=== PATIENT | female | born 1935 | race Caucasian/White ===

== ENCOUNTER 2017-06-22 19:06 | Inpatient (IN) ==
[2017-06-22 19:49] LABS: URINE CULTURE NEEDED? NO; URINE MICRO REVIEW NEEDED? NO; URINE SOURCE CLEAN CATCH
[2017-06-22 20:02] LABS: BASO% 0.2 % (0.0-0.8); EOS# 0.12 X1000 (0.0-0.7); EOS% 1.3 % (0.0-10.0); HEMATOCRIT 42.5 % (37.0-47.0); HEMOGLOBIN 14.1 g/dL (12.0-16.0); LYMPH# 1.55 X1000 (1.2-3.4); LYMPH% 16.3 % (20.5-51.1); MANUAL DIFF NEEDED? NO; MCH 29.7 PG (27-31); MCHC 33.2 g/dL (33-37); MCV 89.7 FL (81-99); MONO# 0.91 X1000 (0.11-0.59); MONO% 9.6 % (1.7-9.3); MPV 12.3 FL (7.4-10.4); NEUT% 72.6 % (42.2-75.2); PLT 204 X1000 (130-400); RBC 4.74 XMIL (4.2-5.4)
[2017-06-22 20:05] LABS: BILIRUBIN URINE NEGATIVE (NEGATIVE); BLOOD URINE NEGATIVE (NEGATIVE); COLOR YELLOW; GLUCOSE URINE 100 mg/dL (NEGATIVE); LEUKOCYTES URINE NEGATIVE (NEGATIVE); NITRITE URINE NEGATIVE (NEGATIVE); PH URINE 5.5; PROTEIN URINE 50 mg/dL (NEGATIVE); SP GRAVITY URINE 1.035; TURBIDITY URINE HAZY (CLEAR); UR EPITHELIAL CELLS >10 /HPF (<10); URINE BACTERIA NEGATIVE /HPF; URINE RBC <10 /HPF (<10); URINE WBC <10 /HPF (<10); UROBILINOGEN URINE 3 mg/dL (NORMAL)
[2017-06-22 20:14] LABS: INR 0.96; PROTIME 10.1 Seconds (9.2-11.7); PTT 26.2 Seconds (22.0-36.0)
[2017-06-22] MEDS ORDERED: NS 500 ML IV ONE (20:15)
--- NOTE | 2017-06-22 20:23 | Diag Imaging Result Doc PS360 ---
EXAM: HEAD/C-SPINE W/O CONTRAST INDICATION: multiple falls, weakness COMPARISON: CTA neck dated 01/20/2013. No dedicated CT head or CT C-spine is available for comparison. 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 There are a few chronic lacunar infarcts involving the deep zuniga matter bilaterally. There is diffuse brain atrophy. There is no definite acute infarct given the limited sensitivity of CT versus MRI. There is no discrete intracranial mass, mass effect, or intracranial hemorrhage. The surrounding soft tissues are essentially unremarkable. The calvaria is intact. C-spine: There is advanced multilevel degenerative disc disease, worst at C4-5, C5-6, and C6-7 with loss of disc space and marginal osteophyte formation. There is multilevel facet degenerative arthropathy, most significant at C2-3 and C3-4. There is mild anterolisthesis of C3 on C4 due to the facet arthropathy. This is also seen on the previous neck CTA. The degenerative changes are causing some degree of central canal and neuroforaminal narrowing at multiple levels. This appears chronic. There is no discrete fracture, subluxation, or intrinsic osseous lesion, otherwise. The surrounding soft tissues are essentially unremarkable. IMPRESSION: 1.Fairly extensive chronic changes as described but no evidence of acute intracranial pathology. 2.Advanced multilevel degenerative change throughout the cervical spine but no evidence of fracture or other definite acute C-spine injury. Electronically signed by Stephan Wolf 06/22/2017 8:20 PM
--- NOTE | 2017-06-22 20:34 | Diag Imaging Result Doc PS360 ---
EXAM: CHEST-PORTABLE INDICATION: weakness TECHNIQUE: One view COMPARISON: 05/07/2017 FINDINGS: There is elevation of the right hemidiaphragm similar to the previous study. There is evidence of prior granulomatous disease. The lungs are grossly clear, otherwise. There is no discrete pleural fluid collection or pneumothorax. The cardiomediastinal silhouette and central vasculature are grossly unremarkable. IMPRESSION: No evidence of acute pathology by plain radiograph. Electronically signed by Stephan Wolf 06/22/2017 8:32 PM
--- NOTE | 2017-06-22 20:37 | Diag Imaging Result Doc PS360 ---
EXAM: WRIST COMPLETE LEFT INDICATION: fall TECHNIQUE: 3 views COMPARISON: 05/07/2017 FINDINGS: There are stable degenerative changes involving the trapezium, scaphotrapezial joint, and at the base of the first and second metacarpals. There is no discrete fracture, dislocation, or significant intrinsic osseous lesion, otherwise. There appears to be some degree of soft tissue edema around the wrist. IMPRESSION: Stable degenerative changes as described. No definite acute osseous abnormality by plain radiograph. Electronically signed by Stephan Wolf 06/22/2017 8:35 PM
--- NOTE | 2017-06-22 20:38 | ED EKG INTERP ---
This chart was entered by Anson Farrar Scribe, acting as scribe for Michele Ureña MD. EKG Interpretation - EKG Time of EKG reading by physician:: 19:13 EKG Read and Signed by:: Michele Ureña EKG Interpretation (*Must complete 3 of following elements*): Abnormal (ST & T wave abnormality, consider lateral ischemia) Rate: 70 Rhythm: NSR with sinus arrhythmia This chart was documented by the indicated scribe, (Anson Farrar Scribe) and accurately reflects the services I performed and decisions made by me, Michele Hughes MD, as attested by the provider's signature.
--- NOTE | 2017-06-22 20:40 | Diag Imaging Result Doc PS360 ---
EXAM: FOOT COMPLETE LEFT INDICATION: fall TECHNIQUE: 3 views COMPARISON: None. FINDINGS: There is a tiny calcaneal bone spur at the undersurface. There is minimal intercarpal degenerative osteophyte formation at the dorsum of the foot. There is no discrete fracture, dislocation, or significant intrinsic osseous lesion, otherwise. There is suggestion of mild soft tissue edema around the ankle. IMPRESSION: Mild chronic changes. No evidence of acute osseous abnormality involving the intrinsic bones of the foot. Electronically signed by Stephan Wolf 06/22/2017 8:38 PM
--- NOTE | 2017-06-22 20:41 | Diag Imaging Result Doc PS360 ---
EXAM: ANKLE COMPLETE LEFT INDICATION: fall TECHNIQUE: 3 views COMPARISON: None. FINDINGS: There is no discrete fracture, dislocation, or significant intrinsic osseous lesion. The visualized joint spaces are essentially unremarkable. There is suggestion of soft tissue edema surrounding the ankle. IMPRESSION: Soft tissue edema but no definite acute osseous abnormality. Electronically signed by Stephan Wolf 06/22/2017 8:39 PM
[2017-06-22 21:29] LABS: ALBUMIN 3.6 g/dL (3.5-5.0); CALCIUM 9.2 mg/dL (8.8-10.2); MAGNESIUM 1.8 mg/dL (1.5-2.7); POTASSIUM 3.8 mmol/L (3.5-5.1); TOTAL BILIRUBIN 0.26 mg/dL (0.20-1.00); TOTAL PROTEIN 6.7 g/dL (6.3-8.3)
--- NOTE | 2017-06-22 22:56 | PROVIDER DOCUMENTATION ---
This chart was entered by Anson Farrar Scribe, acting as scribe for José Miguel Brody PA. HPI-Musculoskeletal Pain/Inj - GENERAL Chief Complaint: Fall Stated Complaint: AMS after fall 2 days ago Time Seen by Provider: 06/22/17 19:09 Source: patient, family - HX OF PRESENT ILLNESS-MUSKULOSKELTAL Nature of Presenting Problem: Pt is a 81 yof who presents to ER with CC of multiple falls in the past 2 days. Pt complains of left wrist and left ankle/foot pain and has been non-ambulatory since one of her recent falls (details of falls cannot be provided). Pt has hx of frequent UTIs and family reports that pt is more prone to falling when she has a UTI. Quality of Pain: reports: aching, cramping Severity in ED: mild, moderate Onset/Duration: 2 days ago Timing: still present Any recent injury?: Yes (fall) Locality of Occurance: Home Similar Symptoms Previously?: Yes Recently seen or treated by another doctor?: No - FALL INJURY Location of Pain/Injury: reports: upper extremity (left wrist), lower extremity (left ankle/foot), feet (left) Pain Radiation: reports: no radiation Reason for Fall: reports: unknown Symptoms prior to fall:: reports: other (unknown) Loss of Consciousness: unsure Injury Associated Symptoms: reports: joint pain, muscle aches, unable to bear weight, weakness, trouble walking, other (left wrist pain). denies: arm pain, back/neck pain, chest pain, diaphoresis, dizziness, headaches, nausea, puncture wound, shortness of breath, sensory/motor loss, snap/crack/pop sensation, pain with inspiration, vomiting Review of Systems - Adult - REVIEW OF SYSTEMS - ADULT Constitutional: denies: chills, fever, fatique, night sweats, weight gain, weight loss Eyes: reports: no symptoms reported Ears, Nose, Mouth & Throat: reports: no symptoms reported Cardiovascular: reports: no symptoms reported Respiratory: reports: no symptoms reported Gastrointestinal: reports: no symptoms reported Genitourinary: reports: no symptoms reported Musculoskeletal: reports: joint pain (left wrist, left ankle), joint swelling, muscle aches, other (left foot pain). denies: bone pain, back pain, frequent leg cramps, muscle weakness, neck pain Integumentary: reports: no symptoms reported Neurological: reports: no symptoms reported Psychiatric: reports: no symptoms reported Endocrine: reports: no symptoms reported Hematologic/Lymphatic: reports: no symptoms reported Allergic/Immunologic: reports: no symptoms reported All Other Systems: Reviewed and Negative Past History - Adult - PAST MEDICAL HISTORY-ADULT Review of Records: reports: Nursing Assessment Review, Medications Reviewed Cardiovascular: reports: HTN Respiratory: reports: denies history Genitourinary: reports: chronic UTI's Neurological: reports: denies history Endocrine/Immune: reports: Diabetes (?) - PRIOR SURGERIES/PROCEDURES Surgical/Procedure History: reports: hysterectomy, tonsillectomy, hernia repair , back/neck (sx), other (CEA) - IMMUNIZATION STATUS Childhood Immunizations: See Nurse Assessment Flu Vaccine: See Nurse Assessment Physical Exam-Injury Related - Physical Exam-Injury Related Initial Vital Signs Reviewed: Yes General Appearance: appears well, alert, no apparent distress, other (Non-toxic) Head, Ears, Nose, Mouth & Throat: normocephalic/atraumatic, moist mucous membranes, normal ENT inspection, TMs normal, pharynx normal. negative: angioedema, dental decay Neck: non-tender, full range of motion, supple. negative: limited range of motion, muscle spasm, pain on movement, swelling Respiratory: chest non-tender, lungs clear, normal breath sounds, no pleuratic chest pain, no respiratory distress, no accessory muscle use. negative: respiratory distress, decreased breath sounds, accessory muscle use, wheezing Cardiovascular: normal peripheral pulses, regular rate, rhythm. negative: bradycardia, tachycardia, irregularly irregular Abdominal Exam: normal bowel sounds, non tender, soft, no organomegaly, no pulsatile mass. negative: guarding, rebound, tenderness Back Exam: no CVA tenderness, no vertebral tenderness. negative: CVA tenderness , vertebral tenderness Extremity: normal inspection, no pedal edema, no calf tenderness, normal capillary refill, pelvis stable, tenderness (left wrist tender; left lateral malleolus; Left lateral aspect of left foot painful). negative: normal range of motion, non-tender, normal gait, deformity, erythema, inflammation, swelling Psych/Mental Status: normal thought content, normal thought process, other (A/ Ox2). negative: normal mood/affect, oriented x 3 Progress - PLAN OF CARE/RESULTS Progress/Plan/Lab Results: Vital Signs - 8 hr 06/22/17 19:16 Pulse Rate 70 Respiratory Rate 18 Blood Pressure 172/66 O2 Sat by Pulse Oximetry 92 L Laboratory Results - last 24 hr 06/22/17 06/22/17 06/22/17 19:38 19:38 19:38 WBC 9.52 RBC 4.74 Hgb 14.1 Hct 42.5 MCV 89.7 MCH 29.7 MCHC 33.2 RDW Std Deviation 14.9 H Plt Count 204 MPV 12.3 H Neut % (Auto) 72.6 Lymph % (Auto) 16.3 L [place] % (Auto) 9.6 H Eos % (Auto) 1.3 Baso % (Auto) 0.2 Neut # (Auto) 6.92 H Lymph # (Auto) 1.55 [place] # (Auto) 0.91 H Eos # (Auto) 0.12 Baso # (Auto) 0.02 PT 10.1 INR 0.96 PTT (Actin FS) 26.2 Sodium 139 Potassium 3.8 Chloride 102 Carbon Dioxide 24 L Anion Gap 13 BUN 41 H Creatinine 1.0 H Estimated GFR/1.73 m2 53 BUN/Creatinine Ratio 41 Glucose 205 H Calculated Osmolality 294 Calcium 9.2 Magnesium 1.8 Total Bilirubin 0.26 AST 20 ALT 11 Alkaline Phosphatase 52 Creatine Kinase 63 Troponin T Total Protein 6.7 Albumin 3.6 Globulin 3.1 Albumin/Globulin Ratio 1.2 Urine Source Urine Color Urine Turbidity Urine pH Ur Specific [place] Urine Protein Ur Glucose (Stick) Ur Ketones (Stick) Urine Blood Urine Nitrite Urine Bilirubin Urobilinogen Dipstick Urine Leukocytes Urine WBC (Auto) Urine RBC (Auto) U Epithel Cells (Auto) Urine Bacteria (Auto) 06/22/17 06/22/17 19:38 19:38 WBC RBC Hgb Hct MCV MCH MCHC RDW Std Deviation Plt Count MPV Neut % (Auto) Lymph % (Auto) [place] % (Auto) Eos % (Auto) Baso % (Auto) Neut # (Auto) Lymph # (Auto) [place] # (Auto) Eos # (Auto) Baso # (Auto) PT INR PTT (Actin FS) Sodium Potassium Chloride Carbon Dioxide Anion Gap BUN Creatinine Estimated GFR/1.73 m2 BUN/Creatinine Ratio Glucose Calculated Osmolality Calcium Magnesium Total Bilirubin AST ALT Alkaline Phosphatase Creatine Kinase Troponin T < 0.010 Total Protein Albumin Globulin Albumin/Globulin Ratio Urine Source CLEAN CATCH Urine Color YELLOW Urine Turbidity HAZY Urine pH 5.5 Ur Specific [place] 1.035 Urine Protein 50 A Ur Glucose (Stick) 100 A Ur Ketones (Stick) TRACE A Urine Blood NEGATIVE Urine Nitrite NEGATIVE Urine Bilirubin NEGATIVE Urobilinogen Dipstick 3 A Urine Leukocytes NEGATIVE Urine WBC (Auto) <10 Urine RBC (Auto) <10 U Epithel Cells (Auto) >10 A Urine Bacteria (Auto) NEGATIVE Orders Category Date Time Status Saline Loc NOW Care 06/22/17 19:23 Active ANKLE COMPLETE LEFT [RAD] Stat Exams 06/22/17 19:23 Completed CHEST-PORTABLE [RAD] Stat Exams 06/22/17 19:23 Completed FOOT COMPLETE LEFT [RAD] Stat Exams 06/22/17 19:23 Completed HEAD/C-SPINE W/O CONTRAST [CT] Stat Exams 06/22/17 19:23 Completed WRIST COMPLETE LEFT [RAD] Stat Exams 06/22/17 19:23 Completed CBC WITH ELECTRONIC DIFF [HEME] Stat Lab 06/22/17 19:38 Completed CK PROFILE [SP CHEM] Stat Lab 06/22/17 19:38 Completed COMPREHENSIVE METABOLIC PANEL [CHEM] Stat Lab 06/22/17 19:38 Completed MAGNESIUM [CHEM] Stat Lab 06/22/17 19:38 Completed PROTIME WITH INR [COAG] Stat Lab 06/22/17 19:38 Completed PTT [COAG] Stat Lab 06/22/17 19:38 Completed TROPONIN T Stat Lab 06/22/17 19:38 Completed UA NIMS W/REFLEX CULT [URINALYSIS] Stat Lab 06/22/17 19:38 Completed 0.9% Sodium Chloride Inj [Ns] 500 ml Med 06/22/17 20:15 Discontinued IV 999 mls/hr EKG [EKG] Stat Ther 06/22/17 19:23 Ordered Pt without clear etiology of her falls. Waxing/waning confusion. Dehydrated, unable to ambulate. x-rays read as NAF although suspicious for occult fx. Will admit for further management. Result Diagrams: 06/22/17 19:38 06/22/17 19:38 - XRAY 1 XRAY: Left XRAY Study: Foot Impression: See EMR Report (Mild chronic changes. No evidence of acute osseus abnormality involving the intrinsic bones of the foot - Dr. oWlf (Radiologist)) XRAY Interpretation: See report 2 XRAY: Left XRAY Study: Wrist Impression: See EMR Report (Soft tissue edema but no definite acute osseus abnormality - Dr. Wolf (Radiologist)) XRAY Interpretation: See report 3 XRAY: Left XRAY Study: Wrist Impression: See EMR Report (Stable degenerative changes as described. No definite acute asseus abnormality by plain radiograph - Dr. Wolf (Radiologist)) 4 XRAY: Bilateral XRAY Study: Chest Impression: See EMR Report (No evidence of acute pathology by plain radiograph - Dr. Wolf (Radiologist)) - CT/MRI 1 CT Study: Cervical Spine, Head Impression: See EMR Report (Fairly extensive chronic changes as described but no evidence of acute intracranial pathology. Advanced multilevel degenerative change throughout the cervical spine but no evidence of fx or other definite acute C-spine injury - Dr. Wolf (Radiologist)) - CONSULTS/PCP/HOSPITALIST Notification #1 *Consult/PCP/Hospitalist*: Dr. Castillo (Hospitalist) Time Discussed: 22:01 Consult Disposition: Admit Departure - Departure Date of Disposition Decision: 06/22/17 Time of Disposition Decision: 22:03 DIAGNOSIS: Falls frequently, Dehydration, Abnormal EKG, Acute pain of left foot, Acute pain of left wrist, Confusion Disposition: ADMITTED INPATIENT 09 Certified Medical Emergency: Emergent Condition: Stable Referrals and Follow-Ups: Modesto Potter MD [Primary Care Provider] - - Critical Care Note This patient required my direct & personal management of CC.: No Attestation - Physician/ ISABEL Attestation Patient care was provided by Advanced Practice Provider:: Yes Advanced Practice Provider:: José Miguel Brody Advanced Practice Provider documentation review:: The Mid-level provider documentation, treatment plan and medical decision making was reviewed by the physician who agrees with all treatment and medical decision making by the MLP. This chart was documented by the indicated scribe, (Anson Farrar Scribe) and accurately reflects the services I performed and decisions made by me, José Miguel Brody PA, as attested by the provider's signature.
[2017-06-23] MEDS ORDERED: ZOFRAN IV PRN (00:13)
[2017-06-23] MEDS: NS 1,000 ML IV SCH ×2 (01:06→15:28)
[2017-06-23] MEDS: NORVASC PO SCH ×2 (01:06→21:12)
[2017-06-23] MEDS: LOVENOX SUBQ SCH (01:06)
--- NOTE | 2017-06-23 05:47 | EKG Report ---
Test Performed on : 06/22/2017 7:13:27 PM Test Reason : Chest Pain Blood Pressure : / mmHG Vent. Rate : 070 BPM Atrial Rate : 070 BPM P-R Int : 130 ms QRS Dur : 084 ms QT Int : 404 ms P-R-T Axes : 044 -11 116 degrees QTc Int : 436 ms Normal sinus rhythm. with sinus arrhythmia. ST \T\ T wave abnormality, consider lateral ischemia Abnormal ECG When compared with ECG of 08-FEB-2013 12:10, T wave inversion now evident in Anterolateral leads Unconfirmed Result
--- NOTE | 2017-06-23 06:40 | HISTORY AND PHYSICAL ---
PRIMARY CARE PHYSICIAN: Dr. Modesto Potter. CHIEF COMPLAINT: Recurrent falls. HISTORY OF PRESENT ILLNESS: This is an 81-year-old, female with past medical history of hypertension, hypercholesterolemia, peripheral vascular disease, who was brought to the emergency department because of recurrent falls. According to patient and family, who is at bedside, she started having those problems 2 weeks ago. She lives in an assisted living facility and during the last 4 days, the sensation of weakness in both legs has been getting worse and she started having falls 2 to 3 times per day since. Three days ago, one of those she hurt her on the left foot. According to the family, who is at bedside, she was having also some episodes of disorientation while she was there that lasted a few minutes. She also has history of recurrent UTIs, but at this time, she is not reporting any pain when she urinates. It is important to remark that she is still on prophylactic medication, in this case, Macrobid for prophylaxis with UTI. For all of those symptoms, we were called for admission. PAST MEDICAL HISTORY: 1. Hypertension. 2. Hypercholesterolemia. 3. Borderline diabetes. 4. Recurrent UTI. PAST SURGICAL HISTORY: 1. Left endarterectomy. 2. Back surgery. 3. Inguinal hernia repair. 4. Bladder surgery. ALLERGIES: The patient is allergic to Levaquin and codeine. SOCIAL HISTORY: She lives in an assisted living facility. She denies drinking alcohol, smoking tobacco or using illicit drugs. REVIEW OF SYSTEMS: All systems were reviewed and all symptoms are related. PHYSICAL EXAMINATION: VITALS: Temperature not checked in the ER, heart rate 70, respiratory rate 18, blood pressure 172/66, O2 saturation 92% on room air. GENERAL EXAMINATION: This is an 81-year-old, female lying in bed, in no acute distress. HEENT: Head is normocephalic, atraumatic. Anicteric sclerae and pale conjunctivae. Mucous membranes moist. NECK: Supple. No JVD noted. No carotid bruits. No lymphadenopathy. No thyromegaly. CARDIOVASCULAR: S1, S2 heard. No murmurs, gallops, or rubs. Regular rate and rhythm. RESPIRATORY: Clear bilaterally to auscultation. No work of breathing or using accessory muscles. ABDOMEN: Soft, nontender to palpation. Bowel sounds present. No organomegaly. EXTREMITIES: There is a pain to palpation in the anterior side of the left foot. No crepitus was noted, but very painful to palpation. Peripheral pulses present in both legs. NEUROLOGICAL: Patient is alert and oriented x3. Moves 4 extremities. Muscle strength 5/5 in both upper extremities and right lower extremities. LABORATORY DATA: The CBC and BMP is completely unremarkable. Urinalysis shows no leukocytes in urine. ASSESSMENT AND PLAN: 1. Recurrent falls. At this time, we do not know exactly why she is having falls. It could be just physical deconditioning versus worsening UTI. Her urinalysis initially is not back, so I think at this point, we do not need to cover this patient with antibiotics considering that this patient is not symptomatic. We have ordered a urine culture to see if there is any infection. 2. Hypertension. Blood pressure is high and she is receiving metoprolol 25 mg p.o. daily. We are going to add amlodipine to her current treatment. 3. Hyperlipidemia. We will continue with home medications. 4. Chronic back pain. We will continue with pain medications. 5. Left foot pain. After the x-ray was informed negative, the fact that this pain is better with to palpation and is not clearly crepitations over the leg, I prefer to consult Orthopedics to see if there is any fractures that we may have missed. 6. Borderline diabetes. At this time, we are going to do Accu-Cheks before meals. We will go from there. cc: Paco Solis MD
[2017-06-23 07:31] LABS: MANUAL DIFF NEEDED? NO
[2017-06-23 07:55] LABS: AGAP 15; BUN 35 mg/dL (8-22); CALCIUM 9.3 mg/dL (8.8-10.2); CHLORIDE 102 mmol/L (98-107); COSMO 290; POTASSIUM 4.2 mmol/L (3.5-5.1); SODIUM 140 mmol/L (136-145); TCO2 23 mmol/L (25-35)
[2017-06-23 08:10] LABS: BASO% 0.1 % (0.0-0.8); EOS# 0.14 X1000 (0.0-0.7); EOS% 1.9 % (0.0-10.0); HEMATOCRIT 36.8 % (37.0-47.0); LYMPH# 1.77 X1000 (1.2-3.4); LYMPH% 24.5 % (20.5-51.1); MCH 29.4 PG (27-31); MCHC 32.6 g/dL (33-37); MCV 90.2 FL (81-99); MONO# 0.76 X1000 (0.11-0.59); MONO% 10.5 % (1.7-9.3); MPV 12.6 FL (7.4-10.4); PLT 190 X1000 (130-400); RBC 4.08 XMIL (4.2-5.4)
[2017-06-23] MEDS: LOPRESSOR PO SCH (08:19)
[2017-06-23] MEDS: CELEXA PO SCH (08:19)
[2017-06-23] MEDS: TRICOR PO SCH (08:19)
[2017-06-23] MEDS: PRILOSEC PO SCH (08:23)
--- NOTE | 2017-06-23 15:46 | PROGRESS NOTE ---
DATE: 06/23/2017 SUBJECTIVE: The patient was admitted on 06/22history today. Her primary care doctor is Modesto Potter. She has a past medical history of hypertension, hypercholesterolemia, peripheral vascular disease. This 81-year-old was brought to the emergency department because of recurrent falls. According to patient's family who is at bedside when she came in. She started having problems about 2 weeks ago. She lives in an assisted living facility and during the last 4 days she had a sensation of weakness in both legs which got worse. She started having falls 2 or 3 times a day. Starting 3 weeks ago she began to hurt in her left foot. According to family, she is also having episodes of disorientation that would last for several minutes, history of recurrent UTIs but this time not reporting any symptoms. She is on some prophylactic Macrobid for UTIs. PAST MEDICAL HISTORY: 1. Hypertension. 2. Hypercholesterolemia. 3. Borderline diabetes. 4. Recurrent UTIs. PAST SURGICAL HISTORY: Left endarterectomy, back surgery, inguinal hernia repair, bladder surgery. OBJECTIVE: General: She is awake, oriented and pleasant today. No complaints when asked though she states she does not feel very good. Vital Signs: Temperature 97.7 degrees, pulse 61, respirations 16, blood pressure 160/51. Lungs: Clear in all lung drake. Cardiovascular: Regular rate without murmur or S3. Abdomen: Soft. Skin: Warm and dry. Urine: Good urine output. LABS: White count 7230, hematocrit 36, platelet count 190,000. Sodium 140, potassium 4.2, chloride 102, bicarbonate 23, BUN 35, creatinine 0.7, blood sugar 133/140/158. ASSESSMENT AND PLAN: 1. Recurrent falls. I am not sure exactly why she is having falls. It could be just deconditioning. We will ask Physical Therapy to evaluate and work on strengthening. 2. History of recurrent urinary tract infections. Aware. Urine culture. 3. Hypertension. Watch blood pressure. 4. Hyperlipidemia. 5. Chronic back pain. 6. This sounds like episodes of confusion consisting of metabolic encephalopathy, maybe some underlying cognitive decline as well. 7. Complaining of left foot pain. They did a foot x-ray with mild chronic changes. No evidence of acute osseous abnormality. On her right foot interestingly, on both her 2nd and 3rd toes she has a bunion on those toes that overlap the top of her first toe. 8. She had a wrist x-ray done 06/22/2017 stable degenerative changes described. No definite osseous abnormality. 9. Review of orders. She is on Mysoline 50 mg p.o. as needed. She is getting normal saline at 75 mL an hour, TriCor 145 mg a day, Celexa 20 mg a day, Norvasc [address] Doss was consulted. Physical Therapy to evaluate. 10. In looking at her home medications, she is on meloxicam, metoprolol, Macrodantin, primidone 50 mg as needed. cc: Eliazar Merida MD
--- NOTE | 2017-06-23 16:28 | ECHO REPORT ---
ORDER DATE: 06/23/2017 INDICATION: Hypertension, recurrent falls, history diabetes. FINDINGS: 1. The right atrium is normal in size at 3.3 cm. 2. There is at least moderate and possibly severe tricuspid regurgitation. Is a somewhat eccentric jet. RV systolic pressure of 71 indicating pulmonary hypertension. 3. Normal RV size and systolic function. 4. Mild pulmonic insufficiency. 5. Normal left atrial size at 3.9 cm. 6. No mitral valve prolapse. At least moderate and possibly severe mitral regurgitation. The jet is quite eccentric. 7. Normal LV size, end-diastolic dimension of 5.2. Mild left ventricular hypertrophy with a posterior and interventricular septal wall thickness 1.0 and 1.2 cm respectively. Normal to hyperdynamic LV systolic function. The estimated EF is greater than 70%. 8. Aortic valve appears calcified with restriction in motion. I believe this is most likely suggestive of moderate . The peak gradient across valve is 47 with a mean of 25. Aortic valve area is 0.9 cm2 by the continuity equation. However the dimensionless index is 0.29 suggesting that it is not a severe degree of stenosis. No aortic insufficiency identified. 9. Aorta appears normal in visualized segments. 10. No pericardial effusion seen. cc: MD Paco Santillan MD
[2017-06-24] MEDS: NS 1,000 ML IV SCH ×3 (02:53→17:16)
[2017-06-24] MEDS: LOVENOX SUBQ SCH (05:35)
[2017-06-24] MEDS: PRILOSEC PO SCH (06:01)
[2017-06-24 06:51] LABS: MANUAL DIFF NEEDED? NO
[2017-06-24 07:02] LABS: BASO% 0.1 % (0.0-0.8); EOS# 0.12 X1000 (0.0-0.7); EOS% 1.7 % (0.0-10.0); HEMATOCRIT 32.5 % (37.0-47.0); HEMOGLOBIN 10.8 g/dL (12.0-16.0); LYMPH# 1.21 X1000 (1.2-3.4); LYMPH% 17.6 % (20.5-51.1); MCH 29.2 PG (27-31); MCHC 33.2 g/dL (33-37); MCV 87.8 FL (81-99); MONO# 0.66 X1000 (0.11-0.59); MONO% 9.6 % (1.7-9.3); MPV 12.1 FL (7.4-10.4); PLT 173 X1000 (130-400)
[2017-06-24 07:20] LABS: AGAP 12; BUN 22 mg/dL (8-22); CALCIUM 8.5 mg/dL (8.8-10.2); CHLORIDE 102 mmol/L (98-107); COSMO 284; POTASSIUM 3.6 mmol/L (3.5-5.1); SODIUM 139 mmol/L (136-145); TCO2 25 mmol/L (25-35)
[2017-06-24] MEDS ORDERED: CALMOSEPTINE OINTMENT TOP ONE (08:40)
--- NOTE | 2017-06-24 08:44 | CONSULTATION ---
DATE OF CONSULTATION: 06/24/2017 HISTORY OF PRESENT ILLNESS: Ms. Yao is an 81-year-old female who presented to the emergency department after history of recurrent falls and some weakness. She hurt her left foot. She also had some weakness in the legs so she was admitted. She has been treated for her hypertension and for a UTI as well. She has complained of left foot pain and Orthopedics was consulted to evaluate. The foot pain has been going on for a while now. She says that the pain is mainly on the top of her foot but also some on the bottom. It is worse when she is up and on it. It is also better when she stays off of it, and actually has been getting better over the past several days. She denies any swelling to the foot. She has had lymphedema in this left lower extremity. I think that a lot of her pain may be swelling related. PAST MEDICAL HISTORY: 1. Hypertension. 2. Borderline diabetes. 3. Recurrent UTI. PAST SURGICAL HISTORY: 1. Left endarterectomy. 2. Back surgery. 3. She has had a bladder surgery. 4. Hernia repair. ALLERGIES: Levaquin and codeine. MEDICATIONS: Per the medical record. SOCIAL HISTORY: She lives in an assisted living facility. She denies any alcohol or smoking. REVIEW OF SYSTEMS: Positive for left foot pain. All other systems are essentially negative. PHYSICAL EXAMINATION: General: Ms. Yao is lying in bed, resting comfortably. She appears well-nourished and in no acute distress. Head and Neck: Normocephalic, atraumatic. Respirations: Nonlabored breathing. Cardiovascular: Regular rate. Abdomen: Nondistended. Left lower extremity: Not a lot of swelling at all to the foot on exam today. She has 2+ DP and PT pulses. Good sensation to light touch to all the toes and to the foot. She can dorsiflex and plantar flex the foot well. No tenderness to palpation on the dorsal aspect of the foot. She does have some tenderness to palpation to the very plantar aspect of the foot, really right in the mid arch area. No tenderness to palpation up around the Achilles or around the ankle and no skin or ulcerations or abrasions seen. RADIOGRAPHS: Several views of the left foot were obtained which shows no fractures seen. ASSESSMENT: Left foot pain. PLAN: It seems like Ms. Ropers foot pain has gotten better over the past several days. It may just be that she has not been up and on it as much. I did not see any radiographic evidence of fractures. From an orthopedic standpoint, I am okay with her being discharged. She can weight bear as tolerated on the left lower extremity and if she still has some foot pain when she is discharged, I encouraged her to come to my clinic, and that way we can get weightbearing foot films and evaluate a little bit further. cc: Graham Doss MD
[2017-06-24] MEDS: LOPRESSOR PO SCH (09:00)
[2017-06-24] MEDS: TRICOR PO SCH (09:01)
[2017-06-24] MEDS: CELEXA PO SCH (09:01)
--- NOTE | 2017-06-24 17:17 | PROGRESS NOTE ---
DATE: 06/24/2017 SUBJECTIVE: Ms. Yao is hungry. She ate a little bit of her meal and she is excited about that. She does not feel like she is much stronger. Her left foot is not hurting as bad, was not tender to touch. Had full range of motion and the mid foot was nontender. OBJECTIVE: Vital signs: Temperature 98.3 degrees, pulse 70, respirations 17, blood pressure 168/68. Lungs: Are clear in all lung drake. Cardiovascular: Regular rhythm and rate without murmur or S3. Abdomen: Soft. Skin: Is warm and dry. Urine output was over 8 L. LAB: White count 6860, hematocrit 32, platelet count 173,000. Chemistry sodium 139, potassium 3.6, chloride 102, bicarb 25, BUN 22, creatinine 0.7, blood sugar 131, 149, 243, 131. ASSESSMENT AND PLAN: 1. Left foot pain, it seems to be getting better and may just been overuse, no radiographic evidence of fractures. She can weight bear on it appreciate Dr. Doss's evaluation. 2. Weakness in her legs. Will continue physical therapy. She has had several recurrent falls and may need to pursue more aggressive inpatient physical therapy. 3. History of urinary tract infections. We are treating her empirically, I am not convinced she has infection this time. 4. Hypertension. 5. Chronic back pain. 6. Episodes of confusion. This may be multifactorial may include medication, metabolic encephalopathy. 7. Appetite, p.o. intake seems to be improving. Reviewed her orders, I do not see any change at this point. cc: Eliazar Merida MD
[2017-06-24] MEDS: NORVASC PO SCH (20:09)
[2017-06-24] MEDS: MYSOLINE PO SCH (20:09)
[2017-06-25] MEDS: PRILOSEC PO SCH (06:13)
[2017-06-25] MEDS: LOVENOX SUBQ SCH (06:13)
[2017-06-25] MEDS: NS 1,000 ML IV SCH ×2 (06:13→15:17)
[2017-06-25 06:40] LABS: MANUAL DIFF NEEDED? NO
[2017-06-25 06:47] LABS: BASO% 0.3 % (0.0-0.8); EOS# 0.14 X1000 (0.0-0.7); EOS% 2.3 % (0.0-10.0); IMM GRAN# 0.02 X1000 (0.0-0.04); IMM GRAN% 0.3 % (0.0-0.5); LYMPH# 0.97 X1000 (1.2-3.4); LYMPH% 16.2 % (20.5-51.1); MCH 29.1 PG (27-31); MCHC 33.3 g/dL (33-37); MCV 87.2 FL (81-99); MONO# 0.66 X1000 (0.11-0.59); MPV 12.3 FL (7.4-10.4); NEUT% 69.9 % (42.2-75.2); PLT 213 X1000 (130-400); RBC 4.13 XMIL (4.2-5.4)
[2017-06-25 06:55] LABS: AGAP 12; BUN 18 mg/dL (8-22); CALCIUM 8.6 mg/dL (8.8-10.2); CHLORIDE 101 mmol/L (98-107); COSMO 280; POTASSIUM 3.6 mmol/L (3.5-5.1); SODIUM 138 mmol/L (136-145); TCO2 25 mmol/L (25-35)
[2017-06-25] MEDS: CELEXA PO SCH (09:03)
[2017-06-25] MEDS: TRICOR PO SCH (09:03)
[2017-06-25] MEDS: LOPRESSOR PO SCH (09:03)
[2017-06-25] MEDS: DUONEB (A & A) INH PRN (15:25)
--- NOTE | 2017-06-25 17:15 | PROGRESS NOTE ---
DATE: 06/25/2017 SUBJECTIVE: Ms. Yao is feeling better. Her left foot is hurting less. She appears to be a little stronger. OBJECTIVE: Vital signs: She has remains afebrile. Temperature 97.8 degrees, pulse 79, respirations 20, blood pressure 155/76. Lungs: Clear in all lung drake. Cardiovascular: Regular rhythm and rate without murmur or S3. Abdomen: Soft. Skin: Warm and dry. LAB: Blood sugar 131, 141, 159. White count 5,990, hematocrit 36, platelet count 213,000. Electrolytes look good. Sodium 138, potassium 3.6, chloride 101, bicarb 25, BUN 18, creatinine 0.6. Blood sugar 131, 141, 142. ASSESSMENT AND PLAN: 1. Left foot pain. Seems to be getting better. It may just be overuse and did this seems to be improving every day. 2. Weakness in her legs. Encouraged physical therapy. 3. Urinary tract infection. Has been treated. 4. Hypertension. 5. Chronic back pain. 6. Episodes of confusion. She seems to be clearing up a little bit on that. 7. Physical therapy. We will continue to try and get her walking and moving around. I will ask physical therapy to start again. cc: Eliazar Merida MD
[2017-06-25] MEDS: TYLENOL PO PRN (20:11)
[2017-06-25] MEDS: MYSOLINE PO SCH (20:11)
[2017-06-25] MEDS: NORVASC PO SCH (20:11)
[2017-06-26] MEDS: NS 1,000 ML IV SCH ×2 (02:35→02:36)
[2017-06-26] MEDS: DUONEB (A & A) INH PRN ×3 (06:05→23:06)
[2017-06-26] MEDS: LOVENOX SUBQ SCH (06:39)
[2017-06-26] MEDS: PRILOSEC PO SCH (06:39)
[2017-06-26] MEDS: CELEXA PO SCH (08:05)
[2017-06-26] MEDS: TRICOR PO SCH (08:05)
[2017-06-26] MEDS: LOPRESSOR PO SCH (08:05)
--- NOTE | 2017-06-26 14:11 | PROGRESS NOTE ---
DATE: 06/26/2017 HISTORY: Ms. Yao is awake and alert. She is feeling better. She states that she has not walked yet. PHYSICAL EXAMINATION: Vital Signs: 98.3 degrees, pulse 99, respirations 16, blood pressure 140/84. Lungs: Clear in all lung drake. Cardiovascular: Regular rhythm and rate without murmur or S3. Abdomen: Soft, nontender. Skin: Warm and dry. No pedal edema. Urine output is over 1200 mL. Patient continues the undergo physical therapy, trying to get her to walk. She is eating well. LABORATORY DATA: Review of labs unremarkable. Blood sugar 139, 125, 180. ASSESSMENT AND PLAN: 1. Left foot pain which is improving every day. No tenderness at this point. 2. Weakness in her legs. Continue physical therapy. 3. Urinary tract infection which has been treated. 4. Hypertension. 5. Chronic back pain. 6. Episode of confusion which her mental status has improved quite a bit. REVIEW OF ORDERS: I do not see any change at this point. cc: Eliazar Merida MD
[2017-06-26] MEDS: MYSOLINE PO SCH (21:23)
[2017-06-26] MEDS: NORVASC PO SCH (21:23)
[2017-06-27] MEDS: NS 1,000 ML IV SCH (03:18)
[2017-06-27] MEDS: LOVENOX SUBQ SCH (06:26)
[2017-06-27] MEDS: PRILOSEC PO SCH (06:26)
[2017-06-27] MEDS: DUONEB (A & A) INH PRN ×5 (07:22→23:10)
[2017-06-27] MEDS: TRICOR PO SCH (10:13)
[2017-06-27] MEDS: LOPRESSOR PO SCH (10:13)
[2017-06-27] MEDS: CELEXA PO SCH (10:13)
--- NOTE | 2017-06-27 15:03 | PROGRESS NOTE ---
DATE: 06/27/2017 Ms. Yao says her foot is hurting her again around the midfoot. Legs are pretty weak. She is eating well. Breathing comfortably. She remains afebrile but still not able to walk. PHYSICAL EXAMINATION: Vital Signs: Temperature 98.6 degrees, pulse 77, respirations 28, blood pressure 174/40. Lungs: Clear in all lung drake. Cardiovascular: Regular rhythm and rate without murmur or S3. Abdomen: Soft. Skin: Warm and dry. Urine output 2400 mL. Blood sugars 162, 134, 169. Lab reviewed. Sugars 184, 134, 169. ASSESSMENT AND PLAN: 1. Left foot pain which is improving until today. States it is hurting whenever she puts weight on it. So I wonder about a stress fracture. May need to get a bone scan. 2. Weakness in her legs. Continue physical therapy. 3. Urinary tract infection, has been treated. 4. Hypertension. 5. Chronic back pain. 6. She has was having episodes of confusion which is much improved. Dr. Doss had evaluated her foot on the first of this month. Did not see any radiographic fractures. I will discuss more with Orthopedic. Continue physical therapy. May need to go to rehab. I did look at review of orders and I do not see any change. cc: Eliazar Merida MD
[2017-06-27] MEDS: TYLENOL PO PRN ×2 (16:16→21:40)
[2017-06-27] MEDS: MYSOLINE PO SCH (21:40)
[2017-06-27] MEDS: NORVASC PO SCH (21:40)
[2017-06-28] MEDS: TYLENOL PO PRN ×2 (02:38→16:42)
[2017-06-28] MEDS: DUONEB (A & A) INH PRN ×4 (03:27→19:26)
[2017-06-28] MEDS: PRILOSEC PO SCH ×2 (05:43→07:58)
[2017-06-28] MEDS: NS 1,000 ML IV SCH (05:44)
[2017-06-28] MEDS: LOVENOX SUBQ SCH (06:05)
[2017-06-28] MEDS: CELEXA PO SCH (10:05)
[2017-06-28] MEDS: TRICOR PO SCH (10:05)
[2017-06-28] MEDS: LOPRESSOR PO SCH (10:06)
[2017-06-28] MEDS ORDERED: BLISTEX MEDICATED BERRY LIP BALM TOP PRN (11:23)
--- NOTE | 2017-06-28 11:28 | PROGRESS NOTE ---
DATE: 06/28/2017 SUBJECTIVE: Her left foot is hurting her again. It is right around the mid foot. It hurts worse with weight bearing. Otherwise, she is eating well. Remains afebrile. OBJECTIVE: Vital signs: Temperature 98.3 degrees, pulse 84, respirations 22, blood pressure 176/80. HEENT: CVP less than 6 cm. Lungs: Clear in all lung drake. Cardiovascular exam: Regular rhythm and rate without murmur or S3. : Urine output is 1800 mL. ASSESSMENT AND PLAN: 1. Her x-ray of her foot revealed mild chronic changes and no evidence of acute osseous abnormality, but concerned about the level of pain. On asking orthopedic, we may want to do a CT of the foot or even a bone scan. I may see what is recommended. She may need to go into a boot, and she is having a lot of trouble with weightbearing exercise. 2. Presented with metabolic encephalopathy and that has resolved. 3. Urinary tract infection, treated. 4. Hypertension. 5. Chronic back pain, which really has not been a complaint. We may need to go to rehab for awhile. cc: Eliazar Merida MD
[2017-06-28] MEDS ORDERED: ATIVAN PO ONE (21:00)
[2017-06-28] MEDS: NORVASC PO SCH (22:18)
[2017-06-28] MEDS: MYSOLINE PO SCH (22:18)
[2017-06-29] MEDS: DUONEB (A & A) INH PRN (03:20)
[2017-06-29] MEDS: LOVENOX SUBQ SCH ×2 (04:52→06:36)
[2017-06-29] MEDS: PRILOSEC PO SCH ×2 (04:52→06:36)
[2017-06-29] MEDS: NS 1,000 ML IV SCH (04:52)
[2017-06-29] MEDS: TRICOR PO SCH (08:14)
[2017-06-29] MEDS: LOPRESSOR PO SCH (08:14)
[2017-06-29] MEDS: CELEXA PO SCH (08:14)
[2017-06-29] MEDS ORDERED: CALAMINE LOTION TOP PRN (11:13)
[2017-06-29] MEDS ORDERED: CALMOSEPTINE OINTMENT TOP PRN (17:32)
--- NOTE | 2017-06-29 17:32 | PROGRESS NOTE ---
DATE: 06/29/2017 SUBJECTIVE: Ms. Yao appears to be awake and comfortable. She does complain that her left foot still hurts around the midfoot. She does not feel like she is much stronger, but she is alert and oriented and answers questions appropriately.Vital signs: Temperature 97.8 degrees, pulse 87, respirations 16, blood pressure 187/70. Lungs: Are clear in all lung drake. Cardiovascular: Regular rhythm and rate without murmur or S3. Abdomen: Soft. Skin: Warm and dry. LABORATORY: Blood sugar 156, 145, 141. ASSESSMENT AND PLAN: 1. X-ray of her foot revealed mild chronic changes. No evidence of acute osseous abnormality. Concerned about her level of pain is increased, not able to bear weight on it and I think maybe we will check a bone scan tomorrow and ask Orthopedics to revisit. 2. Presented with metabolic encephalopathy. This has resolved. 3. Urinary tract infection. Resolved. 4. Hypertension. 5. Chronic back pain. All of this has improved. 6. Review of lab, blood sugar is 173, 145, 141. cc: Eliazar Merida MD
[2017-06-29] MEDS: TYLENOL PO PRN (20:39)
[2017-06-29] MEDS: NORVASC PO SCH (20:39)
[2017-06-29] MEDS: MYSOLINE PO SCH (20:39)
[2017-06-29] MEDS ORDERED: ATIVAN ONE (20:40)
[2017-06-30] MEDS: NS 1,000 ML IV SCH (04:11)
[2017-06-30] MEDS: PRILOSEC PO SCH ×2 (05:16→06:50)
[2017-06-30] MEDS: LOVENOX SUBQ SCH (06:50)
[2017-06-30] MEDS: DUONEB (A & A) INH PRN ×4 (08:23→19:25)
[2017-06-30] MEDS: TRICOR PO SCH (09:08)
[2017-06-30] MEDS: CELEXA PO SCH (09:08)
[2017-06-30] MEDS: LOPRESSOR PO SCH (09:08)
--- NOTE | 2017-06-30 13:51 | PROGRESS NOTE ---
DATE: 06/30/2017 SUBJECTIVE: Ms. Yao says she feels better. Still complains of left foot pain with any weightbearing activity. By report she is eating a little better. Remains afebrile. OBJECTIVE: Vital signs: Temperature 97.3 degrees, pulse 77, respirations 14, blood pressure 170/77. Lungs: Are clear in all lung drake. Cardiovascular: Regular rhythm and rate without murmur or S3. Abdomen: Soft. Skin: Is warm and dry. LAB: Blood sugars 145, 150, 140. ASSESSMENT AND PLAN: 1. X-ray of her left foot with mild chronic changes. Check a limited bone scan on her left foot. 2. Metabolic encephalopathy better. 3. Urinary tract infection treated. 4. Hypertension. 5. Chronic back pain not complaining of back pain at this time. 6. Blood sugars under good control. We are still not able to walk. Will see what the bone scan. Maybe she needs to be fit with a boot but I think we need to pursue rehab facility. She is still not ambulating and is largely because of the pain in her foot. I am not sure she will be able to ambulate. cc: Eliazar Merida MD
--- NOTE | 2017-06-30 14:52 | Diag Imaging Result Doc PS360 ---
EXAM: 3 PHASE BONE SCAN HISTORY: L foot pain TECHNIQUE: Three phase bone scan of the feet and ankles following injection of 27.8 mCi of technetium 99m MDP. COMMENT: There is increased flow activity around the left ankle compared to the right. There is also some increased blood pool activity which appears to also include the area of the tarsal and lateral Lisfranc joint region. No definite radiologic correlate is present on the plain radiographs of 06/22/2017 which are the most recent plain radiographs available for comparison. There are some subchondral cysts present in the first and second cuneiforms. IMPRESSION: Apparent inflammatory change in the tarsal and tarsometatarsal region of the left foot. Electronically signed by Johnathon Floyd 06/30/2017 2:50 PM
[2017-06-30] MEDS: TYLENOL PO PRN (18:06)
[2017-06-30] MEDS: MYSOLINE PO SCH (20:39)
[2017-06-30] MEDS: NORVASC PO SCH (20:39)
[2017-07-01] MEDS: NS 1,000 ML IV SCH ×3 (06:17→20:39)
[2017-07-01] MEDS: PRILOSEC PO SCH (06:25)
[2017-07-01] MEDS: LOVENOX SUBQ SCH (06:25)
[2017-07-01] MEDS: DUONEB (A & A) INH PRN ×3 (07:44→20:10)
[2017-07-01 09:03] LABS: MANUAL DIFF NEEDED? NO
[2017-07-01 09:09] LABS: BASO% 0.2 % (0.0-0.8); EOS# 0.19 X1000 (0.0-0.7); EOS% 2.9 % (0.0-10.0); HEMATOCRIT 34.2 % (37.0-47.0); HEMOGLOBIN 11.5 g/dL (12.0-16.0); IMM GRAN# 0.02 X1000 (0.0-0.04); IMM GRAN% 0.3 % (0.0-0.5); LYMPH# 1.31 X1000 (1.2-3.4); MCH 28.8 PG (27-31); MCHC 33.6 g/dL (33-37); MCV 85.7 FL (81-99); MONO# 0.56 X1000 (0.11-0.59); MONO% 8.6 % (1.7-9.3); PLT 332 X1000 (130-400); RBC 3.99 XMIL (4.2-5.4)
[2017-07-01] MEDS: TYLENOL PO PRN ×2 (09:26→20:39)
[2017-07-01] MEDS: LOPRESSOR PO SCH (09:27)
[2017-07-01] MEDS: CELEXA PO SCH (09:27)
[2017-07-01 10:21] LABS: AGAP 12; BUN 13 mg/dL (8-22); CALCIUM 9.1 mg/dL (8.8-10.2); CHLORIDE 101 mmol/L (98-107); COSMO 282; POTASSIUM 3.2 mmol/L (3.5-5.1); SODIUM 139 mmol/L (136-145); TCO2 26 mmol/L (25-35)
[2017-07-01] MEDS ORDERED: POTASSIUM CHLORIDE 20% LIQUID PO ONE (12:45)
--- NOTE | 2017-07-01 13:18 | PROGRESS NOTE ---
DATE: 07/01/2017 SUBJECTIVE: This patient states that she is feeling better, she is not complaining of any specific pain at this moment. She was complaining in the morning of right lower extremity pain, but at this moment, she is not in pain. I asked to the patient if he is able to walk at home and she told me that she has been walking at home, but she does not remember when was the last time. She is completely alert and oriented x3. OBJECTIVE: Vital Signs: Temperature 97.9, pulse 76, respiratory rate 18, blood pressure 172/44, oxygen saturation 99 on 2 L of nasal cannula. HEENT: Head normocephalic. No trauma. PERRLA. Neck: Supple. No JVD. No masses. Central trachea. Chest: Clear to auscultation. No wheezing. No rales. Abdomen: Soft, nontender, nondistended. No hepatosplenomegaly. Extremities: No edema. No clubbing. No cyanosis. Mild discomfort to palpation at the level of the left foot. Neurological: The patient is alert and oriented x3. No focal neurological deficits, just generalized weakness. LABORATORY: WBC 6.5, hemoglobin 11.5, hematocrit 34.2, platelets 332. Sodium 139, potassium 3.2, chloride 101, bicarbonate 26, BUN 13, creatinine 0.6, glucose 175, calcium 9.1. ASSESSMENT AND PLAN: 1. Generalized weakness. This is probably why this patient is having recurrent falls. I do not see any evidence of infection and she is asymptomatic. But because of her weakness, will talk to the aids social worker to see if we can get a rehab center placement for this lady. I already talked to her about it and she agreed with this. 2. Hypertension. Blood pressure has been high and she has been on metoprolol and amlodipine, I will increase the dose of amlodipine today from 5 mg daily to 5 mg twice a day. 3. Hyperlipidemia. Continue with home medication. 4. Chronic back pain. We will continue with her current pain medication. 5. Left foot pain. X-ray without any abnormality, orthopedic surgery evaluated this patient and they did not see any kind of fracture or abnormality, they signed off. Yesterday, we did a nuclear medicine bone scan that showed inflammatory changes in the tarsal and tarsometatarsal region of the left foot. DISPOSITION: I do believe this patient is close to being discharged. I will talk to the aids social worker to find placement and I will put the order for social science research assistant consult. cc: Honorio Bryant MD
[2017-07-01] MEDS: MYSOLINE PO SCH (20:39)
[2017-07-01] MEDS: NORVASC PO SCH (20:39)
[2017-07-02] MEDS: PRILOSEC PO SCH (06:31)
[2017-07-02] MEDS: LOVENOX SUBQ SCH (06:31)
[2017-07-02 07:03] LABS: MANUAL DIFF NEEDED? NO
[2017-07-02 07:12] LABS: BASO% 0.6 % (0.0-0.8); EOS# 0.22 X1000 (0.0-0.7); EOS% 3.1 % (0.0-10.0); HEMATOCRIT 35.8 % (37.0-47.0); HEMOGLOBIN 11.7 g/dL (12.0-16.0); IMM GRAN# 0.03 X1000 (0.0-0.04); IMM GRAN% 0.4 % (0.0-0.5); LYMPH# 0.98 X1000 (1.2-3.4); LYMPH% 13.6 % (20.5-51.1); MCH 28.1 PG (27-31); MCHC 32.7 g/dL (33-37); MCV 86.1 FL (81-99); MONO# 0.66 X1000 (0.11-0.59); MONO% 9.2 % (1.7-9.3); MPV 10.7 FL (7.4-10.4); NEUT% 73.1 % (42.2-75.2); PLT 333 X1000 (130-400); RBC 4.16 XMIL (4.2-5.4)
[2017-07-02 07:19] LABS: AGAP 12; BUN 12 mg/dL (8-22); CALCIUM 9.3 mg/dL (8.8-10.2); CHLORIDE 99 mmol/L (98-107); COSMO 275; POTASSIUM 3.9 mmol/L (3.5-5.1); SODIUM 137 mmol/L (136-145); TCO2 26 mmol/L (25-35)
--- NOTE | 2017-07-02 07:33 | PROGRESS NOTE ---
DATE: 07/02/2017 SUBJECTIVE: Ms. Yao is lying in bed this morning. When I asked the foot, she says it is a "crazy foot." She says it is not really hurting her much this morning, but she says she has not really been up and on it a lot. OBJECTIVE: Left lower extremity exam: There is no swelling to the midfoot or forefoot area. I do not see any skin ulcerations or abrasions. She is not really having a lot of tenderness to palpation at all either to the midfoot. She has good dorsiflexion and plantar flexion of the toes. IMAGING: Nuclear scan shows uptake in the midfoot. ASSESSMENT: Left midfoot osteoarthritis. PLAN: I think Ms. Yao is getting some inflammatory changes in the midfoot which could be some early osteoarthritic changes. The other option would be a potential stress fracture there, but she is not really having any swelling and not a lot of tenderness to palpation when I pushed, which are usually indicative of a stress fracture. So, from an orthopedic standpoint, I would recommend a walker, and she can take some pressure off of the foot when she is using a walker, but I am okay with her being weight bear as tolerated on this left lower extremity. And, from an orthopedic standpoint, I am okay with her being discharged with the walker and home health therapy coming out to the house to help her or either going to a rehab facility, and I will see her in my clinic in about a week or so after she is discharged. We can get some weightbearing views at that point and evaluate the foot a little bit further. cc: Graham Doss MD
[2017-07-02] MEDS: CELEXA PO SCH (09:43)
[2017-07-02] MEDS: NORVASC PO SCH ×2 (09:43→20:39)
[2017-07-02] MEDS: LOPRESSOR PO SCH (09:43)
--- NOTE | 2017-07-02 15:20 | PROGRESS NOTE ---
DATE: 07/02/2017 SUBJECTIVE: This patient states that she is feeling better. She is not complaining of pain today. The plan is to send this patient to a rehab center, marriage and family social worker on board. OBJECTIVE: Vital Signs: Temperature 98.2 degrees, pulse 66, respiratory rate 18, blood pressure 169/72, oxygen saturation 97% on room air. HEENT: Head normocephalic. No trauma. PERRLA. Neck: Supple. No JVD. No masses. Central trachea. Chest: Clear to auscultation. No wheezing. No rales. Abdomen: Soft, nontender, nondistended. No hepatosplenomegaly. Extremities: No edema. No clubbing. No cyanosis. Mild discomfort to palpation at the level of the left foot. Neurological: The patient is alert and oriented x3. No focal neurological deficits just generalized weakness. LABORATORY: WBC 7.1, hemoglobin 11.7, hematocrit 35.8, platelet 333,000. Sodium 137, potassium 3.9, chloride 99, bicarbonate 26, BUN 12, creatinine 0.6, glucose 128, calcium 9.3. ASSESSMENT AND PLAN: 1. Generalized weakness. This is probably why this patient has been having recurrent falls. I do not see any evidence of infection and she is asymptomatic but because of her weakness she needs to go to a rehab center, marriage and family social worker is working on placement. 2. Hypertension. Continue with the same management. 3. Hyperlipidemia. Continue with home medications. 4. Chronic back pain. Continue with current pain medication. 5. Left foot pain. X-ray without any abnormality. Orthopedic surgery evaluated this patient and they recommended to do physical therapy and she needs to use a walker and follow up in the future. We did a nuclear medicine bone scan that showed inflammatory changes in the tarsal and tarsometatarsal region on the left foot. 6. Disposition. This patient is ready to be discharged. We are waiting for placement, marriage and family social worker on board. cc: Honorio Bryant MD
[2017-07-02] MEDS: MYSOLINE PO SCH (20:39)
[2017-07-02] MEDS: NS 1,000 ML IV SCH (20:40)
[2017-07-03] MEDS: PRILOSEC PO SCH (06:32)
[2017-07-03] MEDS: LOVENOX SUBQ SCH (06:32)
[2017-07-03] MEDS ORDERED: LOPRESSOR PO SCH (07:57)
[2017-07-03] MEDS: CELEXA PO SCH (08:33)
[2017-07-03] MEDS: APRESOLINE PO SCH ×2 (08:33→15:44)
[2017-07-03] MEDS: NORVASC PO SCH (08:33)
[2017-07-03] MEDS: TYLENOL PO PRN (11:48)
--- NOTE | 2017-07-03 11:55 | DISCHARGE SUMMARY ---
ADMISSION DATE: 06/22/2017 DISCHARGE DATE: 07/03/2017 CONSULTATIONS: Dr. Doss with orthopedics. PERTINENT PROCEDURES: 1. Ankle x-ray showed soft tissue edema, but no acute osseous abnormality. 2. Chest x-ray showed no evidence of acute pathology. 3. Foot x-ray of the left showed mild chronic changes. No evidence of acute osseus abnormality involving intrinsic bones of the foot. 4. Head and cervical spine CT showed fairly extensive chronic changes as described, but no evidence of acute intracranial pathology. Advanced multilevel degenerative changes throughout the cervical spine, but no evidence of fracture or other definite acute C-spine injury. 5. Wrist x-ray, left, shows stable degenerative changes. No definite osseous abnormality. 6. Echocardiogram showed an ejection fraction of 70%. 7. Bone scan showed apparent inflammatory change in the tarsal and tarsometatarsal region of the left foot. DISCHARGE DIAGNOSES: 1. Left midfoot osteoarthritis. Orthopedics recommends a walker so she can take pressure off her left foot, but he is okay with her being weightbearing as tolerated on the left lower extremity and follow up in 1 week or so after discharge, and they will do weightbearing views in his office. She is being discharged to rehabilitation. 2. Generalized weakness. The patient has been having frequent falls and is being discharged to rehabilitation. 3. Hypertension. Continue current management. 4. Hyperlipidemia. Continue with home medications. 5. Chronic pain. Continue the same medications. HOSPITAL COURSE: Ms. Yao is an 81-year-old female who carries a past medical history of hypertension, hypercholesterolemia, PVD. She was brought to the emergency room because of recurrent falls. According to the patient and her family, she started having these problems 2 weeks prior to her admission. She lives at an assisted living facility, and during the last 4 days prior to her admission, the sensation of weakness in both of her legs has been getting worse, and she started having falls 2 to 3 times per day since then. One of those falls she hurt her left foot. According to the family, she has been having episodes of disorientation that would last a few minutes. She does have a history of recurrent UTIs, but at the time she is not reporting any pain when she urinates, but she was still on prophylactic medication with Macrobid. The patient underwent ankle, chest, head, and cervical spine CTs, as well as a wrist x-ray. They were all benign. She underwent an echocardiogram that did not show anything acute. We did a urinalysis that was negative. Orthopedics was consulted. There was no radiographic evidence of fracture; however, the patient still complained of weakness for several days. Physical therapy was consulted to work with the patient, as well as long term care social worker for rehab placement. Still complaining of left foot pain. Dr. Doss did order a nuclear bone scan of her foot. It just showed inflammatory change in the tarsal and tarsometatarsal region of that foot. It looked like there could be some early osteoarthritic changes. He felt another option could be a potential stress fracture. There was no swelling and a lot of tenderness on palpation indicative of a stress fracture, so from an orthopedic standpoint, he would recommend a walker so she could take some pressure off of her foot, but he was okay with her being weightbearing as tolerated on the left lower extremity and that she could be discharged home with a walker with home health and physical therapy or to a rehab facility and follow up in his clinic in 1 week or so with weightbearing views. conference services director has found a bed for the patient at [facility]. She is appropriate for discharge today. VITAL SIGNS: Temperature is 98.4 degrees, heart rate 85, respirations 14, blood pressure 185/76, and O2 is 94% on room air. DISCHARGE DIET: Regular. DISCHARGE MEDICATIONS: As per Dr. Fowler. Please see MAR. FOLLOWUP: Ms. Yao is being discharged to [facility]. She can follow up with Dr. Doss in 1 week for weightbearing x-rays, as well as her primary care physician, Dr. Potter, in 1 week. She can return to the ED for any worsening of symptoms. TIME SPENT: Discharge time is 30 minutes. Dictated by KIRILL Arenas for Honorio Bryant MD cc: MD Modesto Jean-Baptiste MD
[2017-07-03 15:42] VITALS: BP 172/62
== END 2017-07-03 15:56 ==
LOC: ED 19:06 → 3N 23:35 → SUATTDRO 23:35
PROVIDERS: ATTEND Internal Medicine